=== PATIENT | male | born 1985 | race Caucasian/White ===

== ENCOUNTER 2019-04-08 12:11 | Day surgery (SDC) | payer OTHER ==
[2019-04-08] MEDS ORDERED: DEXAMETHASONE SOD PHOSPHATE 4 MG/1 ML VIAL ONE (12:43)
[2019-04-08] MEDS ORDERED: PROPOFOL 20 ML ONE (12:43)
[2019-04-08] MEDS ORDERED: MIDAZOLAM HCL 2 MG/2 ML SINGLE DOSE VIAL ONE (12:44)
[2019-04-08 13:07] VITALS: BMI 31.8
--- NOTE | 2019-04-08 13:57 | OP ---
Operative Note - Note: Operative Date: 04/01/19 Pre-Operative Diagnosis: deep uretheral stricture disease Operation: [email or web address] iou Post-Operative Diagnosis: Same as Pre-op Surgeon: Ritchie Hebert Anesthesia: General Specimens Removed: urine Estimated Blood Loss (mls): 0 Drains & Tubes with Location: none Drains, Volume Out (mls): 0
[2019-04-08] MEDS ORDERED: KETOROLAC TROMETHAMINE 30 MG/1 ML VIAL ONE (14:02)
[2019-04-08] MEDS ORDERED: ceFAZolin SODIUM 1 GM VIAL IVPB ONE (14:04)
--- NOTE | 2019-04-08 14:13 | CONS ---
DATE OF CONSULTATION: DATE OF DICTATION: 04/08/2019 HISTORY: Patient is a 34-year-old male with a history of obstructive uropathy. Has had history of urethral strictures in the past. He complains of frequent, dribbling, and nocturia x4 and weak urinary stream. Also complains of feelings of incomplete bladder emptying. The patient denies any diabetes, high blood pressure. ALLERGIES: He denies any allergies. SOCIAL HISTORY: He denies any ethanolism or tobacco. PHYSICAL EXAMINATION: General: Reveals a well-developed, adult male. Abdomen: Soft. No CVA tenderness. No organomegaly. Genitourinary: Genitalia are atraumatic. Testes are normal in size and consistency. No hernias or hydroceles are elicited. Meatus is adequate. Foreskin intact. Rectal: Exam reveals a 2+, benign, nontender prostate. Rectal tone good. Saddle sensation present. Urinalysis is negative. BUN 12, creatinine 0.9. IMPRESSION: At present is obstructive uropathy. PLAN: Cystoscopy, possible optical urethrotomy, possible dilation. Bello [id number]
[2019-04-08] MEDS ORDERED: ONDANSETRON 4 MG/2 ML VIAL IVPUSH PRN (14:25)
[2019-04-08] MEDS ORDERED: oxyCODONE HCL 5 MG TABLET PO PRN ×2 (14:25)
[2019-04-08] MEDS ORDERED: LACTATED RINGERS SOLUTION 1,000 ML IV SCH (14:30)
[2019-04-08 17:36] VITALS: BP 133/84; PULSE 66; TEMP 97.8
--- NOTE | 2019-04-13 15:55 | PATH ---
Cytology Non-Gynecological Report Patient Name: JANA REYES [facility]. Rec. #: [id number] /Age/Gender: 1985 (Age: 34) / M Account: [id number] Location: [facility] SURGICAL Taken: 04/08/2019 Received: 04/08/2019 Reported: 04/13/2019 Physicians: Ritchie Hebert M.D. Specimen(s) Received URINE Clinical History Urine for cytology Final Diagnosis URINE FOR CYTOLOGY: SATISFACTORY FOR EVALUATION. NEGATIVE FOR HIGH GRADE UROTHELIAL CARCINOMA. SCATTERED UROTHELIAL CELLS AND RARE SQUAMOUS EPITHELIAL CELLS PRESENT. RED BLOOD CELLS AND FEW BACTERIA PRESENT. Electronically Signed Molly Becerra M.D. Gross Description Approximately 50 cc of yellow fluid received fresh. One cytofunnel prepared and Pap stained.
--- NOTE | 2019-05-03 17:53 | OP ---
DATE OF OPERATION: 04/08/2019 Patient is a 34-year-old male with history of deep urethral stricture. Under general anesthesia he was placed in the dorsal lithotomy position. A cystoscope was inserted in the anterior urethra. At the level of the bulbous urethra, there appeared to be a tight stricture. Therefore, a urethrotome was inserted. A glidewire was passed through the strictured area. The cold knife of the urethrotome was opened and stricture was excised at the 12 o'clock position. No bleeding or extravasation was seen. The bladder was entered grade 2 trabeculation. No lesions or calculi were seen. Ureteral orifices were within normal limits with efflux of clear urine. The bladder was then emptied. The scope was removed. The patient tolerated the procedure well. He returned to the recovery room in good condition. Bello [id number]
== END 2019-04-08 17:35 | disposition home or self-care (01) ==
LOC: JASU-SURG 12:11
PROVIDERS: ATTEND Urology
PROC: 0TND8ZZ Release Urethra, Via Natural or Artificial Opening Endoscopic (ICD-10-PCS; principal; 2019-04-08 13:00)
DX: N35.912 Unspecified bulbous urethral stricture, male (principal)
CPT/HCPCS: 87086; 88108; 94760